=== PATIENT | female | born 2000 | race Caucasian/White ===

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

== ENCOUNTER 2023-07-05 11:19 | Outpatient (CLI) | payer OTHER, SELFPAY ==
[2023-07-05 18:42] LABS: Hematocrit 42.7 % (37.0-47.0); Hemoglobin 13.1 g/dL (12.0-15.0); Mean Corpuscular HGB Conc 30.7 g/dl (32-36); Mean Corpuscular Hemoglobin 30.6 pg (26-34); Mean Corpuscular Volume 99.8 fl (80-100); Mean Platelet Volume 10.4 fl (7.4-10.4); Platelet Count Result 260 k/mm3 (150-375); Red Blood Count 4.28 M/mm3 (4.2-5.4); Red Cell Distribution Width 14.2 % (11.5-14.5); White Blood Count 10.6 K/mm3 (4.5-10.0)
[2023-07-05 18:51] LABS: Alanine Aminotransferase 16 U/L (6-35); Albumin Level 3.9 g/dL (3.5-5.1); Alkaline Phosphatase 57 U/L (38-126); Anion Gap 6 mmol/L (8-16); Aspartate Amino Transferase 61 U/L (14-36); Bilirubin,Total 1.3 mg/dL (0.2-1.3); Blood Urea Nitrogen 12 mg/dL (7-17); Calcium 9.1 mg/dL (8.4-10.2); Carbon Dioxide 27 mmol/L (22-30); Chloride 104 mmol/L (98-107); Estimated Glomerular Filt Rate > 60; Glucose 86 mg/dL (65-110); Potassium 3.8 mmol/L (3.4-5.0); Sodium 137 mmol/L (137-145)
[2023-07-05 19:05] LABS: Free T4 Free Thyroxine 0.89 ng/mL (0.78-2.19); Vitamin D 25 Hydroxy 47.3 ng/mL
[2023-07-05 19:12] LABS: Appearance Urine Clear (Clear); Bilirubin Urine Negative (Negative); Blood Urine Negative (Negative); Color Urine Yellow (Yellow); Glucose Urine UA Negative (Negative); Ketones Urine Negative (Negative); Leukocyte Esterase Ur Negative LEU/UL (Negative); Nitrate Urine Negative (Negative); Protein Urine Negative (Negative); Specific Grav Ur 1.021 (1.001-1.035)
[2023-07-05 19:15] LABS: Add Urine Microscopic? NO
[2023-07-05 19:18] LABS: Thyroid Stimulating Hormone 0.974 uIU/mL (0.465-4.680)
[2023-07-05 19:53] LABS: Folic Acid 12.8 ng/mL (2.76->20)
[2023-07-09 06:15] LABS: Thyroid Peroxidase Antibodies 222 IU/mL (<9)
== END 2023-07-05 11:20 | disposition home or self-care (01) ==
PROVIDERS: PCP Nurse Practitioner Adult Health; Visit Provider Nurse Practitioner Adult Health
DX: R53.83 Other fatigue (principal)
CPT/HCPCS: 36415; 80053; 82306; 82607; 82746; 84439; 84443; 85027; 86376

== ENCOUNTER 2023-08-13 15:40 | Outpatient (CLI) | payer OTHER, SELFPAY ==
--- NOTE | ~2023-08-13 | US_ITS ---
EXAMINATION: US thyroid DATE: 08/13/2023 15:52 INDICATION: Other specified abnormal findings of blood chemistry. TECHNIQUE: Multiple ultrasound images of the thyroid were obtained. COMPARISON: None. FINDINGS: The right thyroid lobe measures 4.4 x 1.4 x 1.5 cm. The left thyroid lobe measures 4.6 x 1.7 x 1.3 c m. There is normal echotexture and echogenicity throughout the thyroid gland. No discrete nodules id entified. Normal vascular flow is present. IMPRESSION: 1. Normal thyroid. Reviewed, dictated and finalized at location E. IMPRESSION: 1. Normal thyroid.
== END 2023-08-13 15:41 ==
PROVIDERS: PCP Nurse Practitioner Adult Health; Visit Provider Nurse Practitioner Adult Health
DX: R79.89 Other specified abnormal findings of blood chemistry (principal)
CPT/HCPCS: 76536

== ENCOUNTER 2024-01-09 14:10 | Outpatient (CLI) | payer OTHER, SELFPAY ==
[2024-01-09 19:41] LABS: Free T4 Free Thyroxine 0.86 ng/mL (0.78-2.19)
== END 2024-01-09 14:11 | disposition home or self-care (01) ==
LOC: ANHBWCLAB 14:11
PROVIDERS: Visit Provider Nurse Practitioner Adult Health
DX: E06.3 Autoimmune thyroiditis (principal)
CPT/HCPCS: 36415; 84439; 84443